=== PATIENT | male | born 1995 | race Hispanic/Latino ===

== ENCOUNTER 2019-08-14 17:48 | Emergency (ER) | payer OTHER ==
[~2019-08-14] VITALS: Ht 175.3 cm; Wt 99.3 kg
[2019-08-14] MEDS ORDERED: PREDNISONE20 MG PO (19:00)
[2019-08-14] MEDS ORDERED: PROAIR HFA INH8.5 GM PO (19:00)
[2019-08-14] MEDS ORDERED: AZITHROMYCIN500 MG PO (19:00)
--- NOTE | 2019-08-14 19:00 | Emergency Department Note ---
History of Present Illnes History of Present Illness Chief Complaint: cough, wheezing History of Present Illness This is a 23 year old male. was doing well prior to this. h/o rad Historian: Patient Arrival Mode: Car History limited by: condition of the patient (normal) Onset (how long ago): week(s) (3) Location: n/a Quality: n/a Radiation: Denies non-radiation Severity: moderate Duration (how long): week(s) (3) Timing of current episode: intermittent Progression: worsening Chronicity: recurrent Context: Denies recent illness, Denies recent surgery, Denies recent immobilization, Denies recent travel, Denies trauma/injury, Denies new medications, Denies hx of DVT/PE, Denies non-compliance w/ medications Relieving factors: none Associated symptoms: Reports cough Treatments prior to arrival: none Past Medical/Family History Physician Review I have reviewed the patient's past medical and family history. Any updates have been documented here. Past Medical History Recent Fever: No Clinical Suspicion of Infectio: No New/Unexplained Change in Ment: No Other Medical History: rad Past Surgical History: None Social History Smoking Cessation: Former smoker Counseling Performed: No Alcohol Use: Social Any Illegal Drug Use: No TB Exposure/Symptoms: No Physically hurt or threatened: No Other Any Pre-Existing Lines (PICC,: No Is patient up to date on immun: No Review of Systems Review of Systems Constitutional: Reports no symptoms EENTM: Reports no symptoms Cardiovascular: Reports no symptoms Respiratory: Reports as per HPI, Reports cough, Reports wheezing Gastrointestinal: Reports no symptoms Genitourinary: Reports no symptoms Musculoskeletal: Reports no symptoms Integumentary: Reports no symptoms Neurological: Reports no symptoms Psychological: Reports no symptoms Endocrine: Reports no symptoms Hematological/Lymphatic: Reports no symptoms Review of other systems: All other systems negative Physical Exam Related Data Allergies: Coded Allergies: No Known Allergies (Unverified , 08/14/19) Vital signs reviewed: Yes Physical Exam CONSTITUTIONAL Constitutional: Present well-developed, Present well-nourished HENT HENT: Present normocephalic, Present atraumatic, Present oropharynx clear/moist, Present nose normal HENT L/R: Present left ext ear normal, Present right ext ear normal EYES Eyes: Reports PERRL, Reports conjunctivae normal NECK Neck: Present ROM normal, Present supple PULMONARY Pulmonary: Present effort normal, Present other (forced expiratory wheezes) CARDIOVASCULAR Cardiovascular: Present regular rhythm, Present heart sounds normal, Present capillary refill normal, Present normal rate GASTROINTESTINAL Abdominal: Present soft, Present nontender, Present bowel sounds normal GENITOURINARY Genitourinary: Present exam deferred SKIN Skin: Present warm, Present dry MUSCULOSKELETAL Musculoskeletal: Present ROM normal NEUROLOGICAL Neurological: Present alert, Present oriented x 3, Present no gross motor or sensory deficits PSYCHOLOGICAL Psychological: Present mood/affect normal, Present judgement normal Assessment & Plan Medical Decision Making MDM take rxed meds Assessment & Plan Final Impression: (1) Acute bronchitis (2) Reactive airway disease Depart Disposition: HOME, SELF-jail Meds Active Scripts Prednisone (PREDNISONE) 20 Mg Tab, 60 MG PO DAILY, #18 TAB Prov:LINA JO 08/14/19 Azithromycin (AZITHROMYCIN) 500 Mg Tablet, 500 TAB PO DAILY, #5 TAB Prov:LINA JO 08/14/19 Albuterol Sulf* (PROAIR HFA INHALER*) 8.5 Gm Inh, 2 INH PO Q4HR PRN for COUGH, #1 INH 1 Refill PRN COUGH, WHEEZING, SHORTNESS OF BREATH// DISPENSE WITH SPACER Prov:LINA JO 08/14/19 LINA JO Aug 14, 2019 19:00
== END 2019-08-14 20:09 | disposition home or self-care (01) ==
LOC: FSED 17:48
DX: R05 Cough (principal); J20.9 Acute bronchitis, unspecified; J45.909 Unspecified asthma, uncomplicated
CPT/HCPCS: 99282

== ENCOUNTER 2020-02-29 03:08 | Emergency (ER) | payer SELFPAY ==
[~2020-02-29] VITALS: Ht 167.6 cm; Wt 102.1 kg
[~2020-02-29 03:08] MED LIST: AZITHROMYCIN500 MG PO; PREDNISONE20 MG PO; PROAIR HFA INH8.5 GM PO
[2020-02-29] MEDS ORDERED: KETOROLAC TROMETHAMINE 30 MG/ML VIAL IV STA (04:09)
[2020-02-29] MEDS ORDERED: CEFAZOLIN SOD 1 GM VIAL ONE (04:15)
[2020-02-29] MEDS ORDERED: CEFAZOLIN SOD 1 GM/NS 50ML 50 ML IV ONE (04:15)
[2020-02-29] MEDS ORDERED: CEPHALEXIN500 MG PO (05:04)
[2020-02-29] MEDS ORDERED: DOXYCYCLINE HY100 MG PO (05:05)
[2020-02-29] MEDS ORDERED: ULTRAM 50MG50 MG PO (05:06)
[2020-02-29] MEDS ORDERED: LOTRIMIN AF12 GM TOP (05:17)
== END 2020-02-29 05:36 | disposition home or self-care (01) ==
LOC: FSED 03:36
DX: L03.115 Cellulitis of right lower limb (principal); M79.671 Pain in right foot; B35.3 Tinea pedis; R73.9 Hyperglycemia, unspecified; R74.8 Abnormal levels of other serum enzymes
CPT/HCPCS: 73610; 73630; 80053; 85025; 99284; J0690; J1885